=== PATIENT | male | born 1950 | race Caucasian/White ===

== ENCOUNTER 2018-02-20 12:51 | Emergency (ER) | payer MEDICARE ==
[~2018-02-20] VITALS: Ht 180.3 cm; Wt 83.9 kg
[2018-02-20] MEDS ORDERED: KETOROLAC 30 MG/ML VIAL. ONE (13:24)
[2018-02-20 13:27] LABS: BILIRUBIN,URINE NEGATIVE (NEG); CLARITY,URINE CLEAR; COLOR,URINE YELLOW; NITRITE,URINE NEGATIVE (NEG); PROTEIN,URINE NEGATIVE (NEG-TRACE)
[2018-02-20] MEDS ORDERED: IV NORMAL SALINE 1000ML BAG 1,000 ML IV ONE (13:30)
[2018-02-20] MEDS ORDERED: KETOROLAC 30 MG/ML VIAL. IV ONE (13:30)
[2018-02-20 13:33] LABS: BACTERIA,URINE FEW /HPF (0-FEW); RBC,URINE TNTC /HPF (0-2); WBC,URINE 0 /HPF (0-4)
[2018-02-20 13:41] LABS: BASO % 0 % (0-3); EOS # 0.1 x10^3/uL (0.0-0.7); EOS % 1 % (0-3); HEMATOCRIT 44.5 % (39.0-53.0); HEMOGLOBIN 15.6 g/dL (13.0-17.5); LYMPH # 1.1 x10^3/uL (1.0-4.8); LYMPH % 10 % (24-48); MEAN CORPUSCULAR HEMOGLOBIN 33 pg (25-35); MEAN CORPUSCULAR HGB CONC 35 g/dL (31-37); MEAN CORPUSCULAR VOLUME 93 fL (79-100); MONO # 0.6 x10^3/uL (0.0-1.1); MONO % 5 % (0-9); NEUT # 9.9 x10^3uL (1.8-7.7); NEUT % 84 % (31-73); PLATELET COUNT 167 x10^3/uL (140-400); RED BLOOD COUNT 4.79 x10^6/uL (4.30-5.70); RED CELL DISTRIBUTION WIDTH 12.5 % (11.5-14.5); WHITE BLOOD COUNT 11.7 x10^3/uL (4.0-11.0)
[2018-02-20 13:51] LABS: CALCIUM 8.9 mg/dL (8.5-10.1); CREATININE 1.1 mg/dL (0.7-1.3); GFR 67.2; POTASSIUM 4.1 mmol/L (3.5-5.1)
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
[2018-02-20 13:57] LABS: ALBUMIN 4.1 g/dL (3.4-5.0); ALBUMIN/GLOBULIN RATIO 1.1 (1.0-1.7); TOTAL BILIRUBIN 0.4 mg/dL (0.2-1.0); TOTAL PROTEIN 7.7 g/dL (6.4-8.2)
[2018-02-20] MEDS ORDERED: CONTRAST GIVEN. MC PRN (14:00)
[2018-02-20] MEDS ORDERED: IOHEXOL 300 MG/ML 100ML VIAL. IV ONE (14:30)
--- NOTE | 2018-02-20 14:53 | RAD ---
CT abdomen and pelvis with contrast Clinical Indication: Left lower abdominal pain, vomiting COMPARISON: None. TECHNIQUE: Multiple contiguous axial images were obtained throughout the abdomen and pelvis with the use of IV contrast. Axial images were reformatted into coronal and sagittal planes . 75 mL Omnipaque 350 was administered. Abdomen findings: Hypoattenuating hepatic lesions are too small to characterize but statistically likely represent simple hepatic cysts. The liver is otherwise normal. The gallbladder, spleen, pancreas, and adrenal glands are unremarkable. 0.4 cm calculus at the left ureterovesicular junction results in mild left hydroureteronephrosis and perinephric fat stranding. Trace right perinephric fat stranding. No right hydronephrosis. There is no significant mesenteric or retroperitoneal adenopathy identified. There is no evidence of free intraperitoneal fluid or pneumoperitoneum. Mild colonic diverticulosis without evidence of diverticulitis. Visualized portions of the bowel otherwise are grossly unremarkable. Pelvis findings: The bladder and distal ureters are unremarkable. There is no significant pelvic ascites. No significant iliac or inguinal adenopathy is identified. No acute osseous abnormality. Mild multilevel degenerative changes of the visualized spine. IMPRESSION: 0.4 cm calculus at the left ureterovesicular junction results in mild left hydroureteronephrosis and perinephric fat stranding. PQRS Compliance Statement: One or more of the following individualized dose reduction techniques were utilized for this examination: 1. Automated exposure control 2. Adjustment of the mA and/or kV according to patient size 3. Use of iterative reconstruction technique Electronically signed by: Galen Herman MD (02/20/2018 2:50 PM) [facility]
[2018-02-20] MEDS ORDERED: HYDR-971 PO (15:18)
[2018-02-20] MEDS ORDERED: TAMS0.4C97 PO (15:18)
[2018-02-20 15:28] VITALS: BP 144/76
== END 2018-02-20 15:31 | disposition home or self-care (01) ==
LOC: ER 12:51
DX: N13.2 Hydronephrosis with renal and ureteral calculous obstruction (principal); R11.10 Vomiting, unspecified; I10 Essential (primary) hypertension; E11.9 Type 2 diabetes mellitus without complications; E78.00 Pure hypercholesterolemia, unspecified; F98.8 Other specified behavioral and emotional disorders with onset usually occurring in childhood and adolescence; Z98.890 Other specified postprocedural states
CPT/HCPCS: 36415; 74177; 80053; 81001; 82962; 85025; 96361; 96374; 99285; J1885; J7030; P9612; Q9967